=== PATIENT | male | born 2000 | race Two or more races ===

== ENCOUNTER 2022-08-28 18:58 | Emergency (ER) | payer SELFPAY ==
--- NOTE | 2022-08-28 19:22 | NUR ---
Pt states he doesn't want to be seen, can't afford the deductible.
== END 2022-08-28 19:23 | disposition left against medical advice (07) ==
LOC: ER 19:07
DX: Z53.21 Procedure and treatment not carried out due to patient leaving prior to being seen by health care provider (principal)